=== PATIENT | female | born 1940 | race Caucasian/White ===

== ENCOUNTER 2016-02-14 14:15 | Emergency (ER) | payer MEDICARE ==
[2016-02-14 15:38] VITALS: TEMP 98.7; BMI 29.2
[2016-02-14 15:59] LABS: AUTOMATED BASOPHIL 0.9 % (0-2); AUTOMATED EOSINOPHIL 1.1 % (0-5); AUTOMATED LYMPH 16.6 % (17-44); AUTOMATED NEUTROPHIL 66.4 % (45-76); MPV 8.5 fL (7.4-10.4)
[2016-02-14 16:01] LABS: BLOOD UREA NITROGEN 11 MG/DL (7-17); CALCIUM 9.3 MG/DL (8.4-10.2); CALCULATED OSMOLALITY 265 MOs/Kg (270-290); CHLORIDE 98 mEq/L (98-107); GLUCOSE 91 MG/DL (70-99); SODIUM LEVEL 138 mEq/L (137-146); TOTAL PROTEIN 7.4 G/DL (6.3-8.2)
[2016-02-14] MEDS ORDERED: ONDANSETRON HCL 4 MG/2 ML VIAL IV ONE (17:23)
[2016-02-14] MEDS ORDERED: MORPHINE 4 MG/ML INJECTION IV ONE (17:23)
[2016-02-14] MEDS ORDERED: NS 1,000 ML IV ONE (17:23)
--- NOTE | 2016-02-14 17:34 | EDPRACDOC ---
- General Information Chief Complaint: Abdominal Pain Stated Complaint: ABD PAIN/BACK PAIN/PAIN WITH URINATION Time Seen by Provider: 02/14/16 17:20 Information Source: Patient, Family Mode Of Arrival: Car Home Medications: Home Medications Budesonide/Formoterol Fumarate [Symbicort 160-4.5 Mcg Inhaler] 2 puff INH BID Carvedilol [Coreg] 12.5 mg PO BID 12/10/14 Hydrochlorothiazide 25 mg PO DAILY 12/10/14 Losartan Potassium [Cozaar] 25 mg PO DAILY 12/10/14 Meclizine HCl [Bonine] 25 mg PO TID 12/10/14 Omeprazole [Prilosec] 20 mg PO DAILY 12/10/14 Rosuvastatin Calcium [Crestor] 20 mg PO HS 12/10/14 Venlafaxine HCl [Effexor Xr] 225 mg PO DAILY 12/10/14 Hydrocodone Bit/Acetaminophen [Lortab 5/325] 1 tab PO Q4-6H PRN #15 tab Levofloxacin [Levaquin] 750 mg PO DAILY #5 tablet 02/14/16 [place]-3 Acid Ethyl Esters [Lovaza] 1 gm PO BID 02/14/16 Ondansetron [Zofran Odt] 4 mg PO Q6H PRN #20 tab.rapdis 02/14/16 Oxycodone HCl/Acetaminophen [Percocet 5-325 mg Tablet] 1 tab PO Q4-6H PRN #14 tab 02/14/16 Trazodone HCl [Desyrel] 50 mg PO QHS 02/14/16 Allergies/Adverse Reactions: Allergies Allergy/AdvReac Type Severity Reaction Status Date / Time Penicillins Allergy Hives* Verified 02/14/16 17:47 - History of Present Illness Onset: YESTERDAY HPI: PT PRESENTS FOR ABDOMINAL PAIN THAT RADIATES TO HER BACK AND DYSURIA. STATES SHE HAS BEEN RECENTLY TREATED FOR UTI WITH TWO DIFFERENT ANTIBIOTICS AND CONTINUES TO HAVE PAIN. STATES SHE ALSO HAS A PMH OF DIVERTICULOSIS. Pain Location: Reports: RUQ, RLQ Pain Context: Reports: Spontaneous Pain Severity: Moderate Pain Quality: Reports: Sharp, Stabbing Pain Radiation: Reports: Back : No Adult Abdominal History: Reports: Abdominal Surgery (CHOLECYSTECTOMY) Female Abdominal History: Reports: UTI Modifying Factors: improves with: Nothing Female Associated Signs & Symptoms: Reports: Nausea, Vomiting, Diarrhea Oral Intake: Decreased Urinary Output: Normal ED Past Medical History - History Reviewed Yes Nurses notes reviewed and agree except as marked - Patient Medical History Neurological History: Reports: Cerebrovascular Accident (TIA X 2) Cardiac History: Reports: Hypertension, Hypercholesterolemia Respiratory History: Reports: COPD Psychological History: Denies: Depression Systemic History: Reports: Diabetes Surgical History: Reports: Cholecystectomy - Social Medical History Smoking Status: Current some day smoker EDM Review of Systems - Review of Systems ROS Negative Except as Marked: Yes All systems reviewed and were negative except as marked - Physical Exam Constitutional: Alert Oriented to: Time, Person, Place Last recorded Vital Signs: Last Vital Signs Temp 98.7 F 02/14/16 15:32 Pulse 82 02/14/16 17:17 Resp 20 02/14/16 17:17 BP 163/70 02/14/16 17:17 Pulse Ox 97 02/14/16 17:17 Oxygen Pulse Oxygen Saturation 97 O2 Device Room Air Oxygen Flow Rate Fraction of Inspired Oxygen ( FIO2) - HEENT Head: Normal ( normocephalic) Eye Exam: Normal (PERRL, EOMI, Sclera white) Oropharynx: Normal (Pharynx:Moist without exudate,Gums-no swelling) Nose: No Symptoms Reported (septum midline) Neck: Normal (FROM, trachea at midline) - Respiratory/Cardiovascular Respiratory: Normal - CTA (BBS clear to auscultation without adventitious sounds ) Cardiovascular: Normal (RRR without murmur, gallop or rub) - GI Auscultation: Normal (NABS) Palpation: Normal (Soft,No rebound or guarding, non distended) Tenderness: Diffuse, Moderate Ash's Sign: Negative Rectal Exam: Deferred - Musculoskeletal Back: Normal (Non-Tender) Extremities: Normal (Normal tone, Pulses 2+ No cyanosis or edema, FROM) - Integumentary Skin: Normal, Warm, Dry Lymphatics: Normal (no adenopathy) - Neurologic Memory Impaired: Normal Motor Function: Normal (Normal tone, Pulses 2+ No cyanosis or edema, FROM) Cranial Nerve: Normal (CN II-X11 intact sensation, strength 5/5) Cerebellar: Normal Mood Description: Normal Perception: Normal - Differential Diagnosis Diverticulitis, Gastroenteritis, UTI - Results All Results Reviewed and Normal except as Highlighted below: Yes 02/14/16 15:43 02/14/16 15:43 WBC 6.4 xk/uL (3.8-10.8) 02/14/16 15:43 RBC 4.53 xM/uL (4.20-5.40) 02/14/16 15:43 Hgb 14.1 g/dL (12.0-16.0) 02/14/16 15:43 Hct 41.7 % (36-47) 02/14/16 15:43 MCV 92 fL (81-99) 02/14/16 15:43 MCH 31.1 pg (27-32) 02/14/16 15:43 MCHC 33.8 g/dl (33-36) 02/14/16 15:43 RDW 13.6 % (11.5-14.5) 02/14/16 15:43 Plt Count 196 xk/uL (130-400) 02/14/16 15:43 MPV 8.5 fL (7.4-10.4) 02/14/16 15:43 Neut % (Auto) 66.4 % (45-76) 02/14/16 15:43 Lymph % (Auto) 16.6 % (17-44) L 02/14/16 15:43 [place] % (Auto) 15.0 % (3-10) H 02/14/16 15:43 Eos % (Auto) 1.1 % (0-5) 02/14/16 15:43 Baso % (Auto) 0.9 % (0-2) 02/14/16 15:43 Absolute Neuts (auto) 4.22 xk/uL (1.7-8.2) 02/14/16 15:43 Absolute Lymphs (auto) 1.02 xk/uL (0.65-4.75) 02/14/16 15:43 Sodium 138 mEq/L (137-146) 02/14/16 15:43 Potassium 3.7 mEq/L (3.5-5.1) 02/14/16 15:43 Chloride 98 mEq/L (98-107) 02/14/16 15:43 Carbon Dioxide 30 mMOL/L (22-33) 02/14/16 15:43 Anion Gap 14 mEq/L (8-16) 02/14/16 15:43 BUN 11 MG/DL (7-17) 02/14/16 15:43 Creatinine 0.70 MG/DL (0.52-1.04) 02/14/16 15:43 Estimated GFR (MDRD) > 60 mL/min (>=60) 02/14/16 15:43 Glucose 91 MG/DL (70-99) 02/14/16 15:43 Calculated Osmolality 265 MOs/Kg (270-290) L 02/14/16 15:43 Calcium 9.3 MG/DL (8.4-10.2) 02/14/16 15:43 Total Bilirubin 0.6 MG/DL (0.2-1.3) 02/14/16 15:43 AST 34 IU/L (14-36) 02/14/16 15:43 ALT 35 IU/L (9-52) 02/14/16 15:43 Alkaline Phosphatase 77 IU/L (55-165) 02/14/16 15:43 Total Protein 7.4 G/DL (6.3-8.2) 02/14/16 15:43 Albumin 4.0 G/DL (3.5-5.0) 02/14/16 15:43 Lipase 51 U/L (23-300) 02/14/16 15:43 Urine Color Yellow 02/14/16 16:57 Urine Clarity Clear 02/14/16 16:57 Urine pH 7.0 (5.0-8.0) 02/14/16 16:57 Ur Specific [place] 1.005 (1.003-1.035) 02/14/16 16:57 Urine Protein Neg (NEG/TRACE) 02/14/16 16:57 Urine Glucose (UA) Neg (NEGATIVE) 02/14/16 16:57 Urine Ketones Neg (NEGATIVE) 02/14/16 16:57 Urine Occult Blood 1+ (NEG/TRACE) H 02/14/16 16:57 Urine Nitrite Neg (NEGATIVE) 02/14/16 16:57 Urine Bilirubin Neg (NEGATIVE) 02/14/16 16:57 Urine Urobilinogen <2.0 MG/DL (0-1) 02/14/16 16:57 Ur Leukocyte Esterase 2+ (NEGATIVE) H 02/14/16 16:57 Urine RBC 0-2 (0-5) 02/14/16 16:57 Urine WBC 10-20 (0-5) H 02/14/16 16:57 Ur Epithelial Cells Occ 02/14/16 16:57 Urine Bacteria 4+ (NEG/FEW) H 02/14/16 16:57 Urine Mucus Occ (NEG/OCC) 02/14/16 16:57 Lab Results 02/14/16 02/14/16 02/14/16 16:57 15:43 15:43 WBC 6.4 RBC 4.53 Hgb 14.1 Hct 41.7 MCV 92 MCH 31.1 MCHC 33.8 RDW 13.6 Plt Count 196 MPV 8.5 Neut % (Auto) 66.4 Lymph % (Auto) 16.6 L [place] % (Auto) 15.0 H Eos % (Auto) 1.1 Baso % (Auto) 0.9 Absolute Neuts (auto) 4.22 Absolute Lymphs (auto) 1.02 Sodium Potassium Chloride Carbon Dioxide Anion Gap BUN Creatinine Estimated GFR (MDRD) Glucose Calculated Osmolality Calcium Total Bilirubin AST ALT Alkaline Phosphatase Total Protein Albumin Lipase 51 Urine Color Yellow Urine Clarity Clear Urine pH 7.0 Ur Specific [place] 1.005 Urine Protein Neg Urine Glucose (UA) Neg Urine Ketones Neg Urine Occult Blood 1+ H Urine Nitrite Neg Urine Bilirubin Neg Urine Urobilinogen <2.0 Ur Leukocyte Esterase 2+ H Urine RBC 0-2 Urine WBC 10-20 H Ur Epithelial Cells Occ Urine Bacteria 4+ H Urine Mucus Occ 02/14/16 15:43 WBC RBC Hgb Hct MCV MCH MCHC RDW Plt Count MPV Neut % (Auto) Lymph % (Auto) [place] % (Auto) Eos % (Auto) Baso % (Auto) Absolute Neuts (auto) Absolute Lymphs (auto) Sodium 138 Potassium 3.7 Chloride 98 Carbon Dioxide 30 Anion Gap 14 BUN 11 Creatinine 0.70 Estimated GFR (MDRD) > 60 Glucose 91 Calculated Osmolality 265 L Calcium 9.3 Total Bilirubin 0.6 AST 34 ALT 35 Alkaline Phosphatase 77 Total Protein 7.4 Albumin 4.0 Lipase Urine Color Urine Clarity Urine pH Ur Specific [place] Urine Protein Urine Glucose (UA) Urine Ketones Urine Occult Blood Urine Nitrite Urine Bilirubin Urine Urobilinogen Ur Leukocyte Esterase Urine RBC Urine WBC Ur Epithelial Cells Urine Bacteria Urine Mucus - Departure Disposition: Home Condition: Stable Final Diagnosis: UTI (urinary tract infection) Qualifiers: Urinary tract infection type: acute cystitis Hematuria presence: without hematuria Qualified Code(s): N30.00 - Acute cystitis without hematuria Instructions: Acute Abdominal Pain (ED), Urinary Tract Infection in Women (ED) , Dysuria Education/Counseling Given To: Patient Education/Counseling Given Regarding: Diagnosis, Treatment, Prognosis, Follow Up Referrals: Stephen Cheng PA [Primary Care Provider] - One Week Prescriptions: Levofloxacin [Levaquin] 750 mg PO DAILY #5 tablet Ondansetron [Zofran Odt] 4 mg PO Q6H PRN #20 tab.rapdis PRN Reason: Nausea/Vomiting Oxycodone HCl/Acetaminophen [Percocet 5-325 mg Tablet] 1 tab PO Q4-6H PRN #14 tab PRN Reason: Pain Additional Instructions: INCREASE FLUID INTAKE. FOLLOW UP WITH PRIMARY CARE PROVIDER NEXT WEEK. TAKE ALL ANTIBIOTICS PRESCRIBED. RETURN TO THE ED FOR WORSENING SYMPTOMS OR CONCERNS.
[2016-02-14 17:45] LABS: LEUKOCYTES/URINE 2+ (NEGATIVE); NITRITE/URINE NEG (NEGATIVE); RBC/URINE 0-2 (0-5); URINE OCCULT BLOOD 1+ (NEG/TRACE)
[2016-02-14] MEDS ORDERED: Pharmacy Review for Metformin - IV Contrast Given SCH (18:00)
[2016-02-14] MEDS ORDERED: CEFTRIAXONE 1 GM in D5W 100 ML IV ONE (18:04)
[2016-02-14] MEDS ORDERED: HYDROCODONE 5 MG/ACETAMIN 325 MG TAB PO ONE (18:07)
--- NOTE | 2016-02-14 19:38 | DIRPT ---
CLINICAL DATA: Low abdominal and bilateral flank pain. Recent urinary tract infection. EXAM: CT ABDOMEN AND PELVIS WITH CONTRAST TECHNIQUE: Multidetector CT imaging of the abdomen and pelvis was performed using the standard protocol following bolus administration of intravenous contrast. CONTRAST: 100 cc of Isovue 370 COMPARISON: 12/10/2014 FINDINGS: Lower chest: Clear lung bases. Normal heart size without pericardial or pleural effusion. Lipomatous hypertrophy of the interatrial septum. Hepatobiliary: Normal liver. Cholecystectomy. Mild intrahepatic duct dilatation. Common duct measures 1.3 cm in the mandi hepatis, similar. No obstructive stone or mass. Pancreas: Mild pancreatic atrophy, without duct dilatation. Spleen: Normal in size, without focal abnormality. Adrenals/Urinary Tract: Normal adrenal glands. Interpolar right renal lesion is similar in size, 1.4 cm. Fluid density on coronal reformats. Interpolar left renal lesion is also fluid density on coronal reformats, at 10 mm. This is similar in size to on the prior. The more anterior interpolar right renal lesion is too small to characterize. Left greater than right renal sinus cysts. Prominence of the ureters is symmetric favored to be related to mild bladder distension. Multiple bladder saccules are again identified. Stomach/Bowel: Apparent proximal gastric wall borderline thickening is favored to be due to underdistention. Scattered colonic diverticula. Normal terminal ileum and appendix. Normal small bowel. Vascular/Lymphatic: Aortic and branch vessel atherosclerosis. No abdominopelvic adenopathy. Reproductive: Hysterectomy. No adnexal mass. Other: No significant free fluid. Mild pelvic floor laxity. Musculoskeletal: Lumbar spondylosis. Convex right lumbar spine curvature. IMPRESSION: 1. No acute process in the abdomen or pelvis. 2. Mild bladder distension with wall irregularity, likely due to a component of outlet obstruction or neurogenic bladder. 3. Mild pelvic floor laxity. 4. Cholecystectomy and chronic mild common duct dilatation. Given chronicity, likely within normal variation. Consider correlation with bilirubin levels. Electronically Signed By: Kaiden Sanchez M.D. On: 02/14/2016 19:35
[2016-02-14 20:02] VITALS: BP 150/72; PULSE 88
== END 2016-02-14 20:02 | disposition home or self-care (01) ==
LOC: ED 14:15
DX: N30.00 Acute cystitis without hematuria (principal)
CPT/HCPCS: 36415; 74177; 80053; 81001; 83690; 85025; 87077; 87086; 87186; 96361; 96365; 96375; 99284; A9270; A9698; J0696; J2405; J7060; J2270; J3490